=== PATIENT | male | born 1935 | race Caucasian/White ===

== ENCOUNTER → 2020-03-25 13:43 | Outpatient (BNVA) | payer MEDICARE, BC, SELFPAY | PROVIDERS: PCP Internal Medicine; Referring Provider Internal Medicine; Visit Provider Urology | DX: Z76.89 Persons encountering health services in other specified circumstances (principal) | CPT/HCPCS: 99212 ==

== ENCOUNTER 2020-04-07 06:16 | Day surgery (SDC) | payer MEDICARE, SELFPAY ==
[2020-04-02 20:54] VITALS: BMI 19.2
--- NOTE | 2020-04-04 13:40 | HO.ANESPROP2 ---
Documented by User: Jennifer Khan 04/04/20 13:43 HPI - Anesthesia Eval Consult details Narrative: 84yo for Cysto, Stent Removal (Right) s/p cysto, stent exchange 11/2019 with [facility] Past Medical History Medical History Back pain Diabetes GERD (gastroesophageal reflux disease) History of Crohn's disease History of kidney stones History of pneumonia Hyperlipemia Hypertension Surgical History Surgical History H/O eye surgery History of colonoscopy Hx of cystoscopy Hx of tonsillectomy History of Problems with Anesthesia: No Social History Social History Smoking Status: Former smoker Smoking Quit Date: 1989 Second Hand Smoke Exposure: No Use of substances other than those prescribed or required for medical reasons: No Advance Directives: Yes Advance Directives Information Provided: Yes Advance Directives on File: Yes (unknown) Advance Directives Date on File: 06/29/19 Meds Allergies Allergy/AdvReac Type Severity Reaction Status Date / Time No Known Allergies Allergy Verified 03/25/20 13:58 [No Known Allergies*] Home Medications Medication Instructions Recorded Confirmed Type albuterol sulfate 90 mcg/actuation 2 puff INHALATION Q3-4H PRN 03/25/20 04/02/20 History aerosol inhaler atorvastatin 10 mg tablet 10 mg PO DAILY 03/25/20 04/02/20 History famotidine 20 mg tablet mg PO 03/25/20 03/25/20 History flu vacc 2020-21(65yr ml IM 03/25/20 03/25/20 History up)-MF59C(PF) 60 mcg(15 mcgx4)/0.5 mL IM syringe hydralazine 50 mg tablet 25 mg PO BID 03/25/20 04/02/20 History lisinopril 40 mg tablet 30 mg PO DAILY 03/25/20 04/02/20 History mesalamine 500 mg 1,500 mg PO BID 03/25/20 04/02/20 History capsule,controlled release omeprazole 20 mg capsule,delayed 20 mg PO DAILY 03/25/20 04/02/20 History release ondansetron HCl 4 mg tablet mg PO 03/25/20 03/25/20 History dorzolamide-timolol [Cosopt] 1 drp OPHTHALMIC (EYE) BID 04/02/20 04/02/20 History latanoprost [Xalatan] 1 drp OPHTHALMIC (EYE) QPM 04/02/20 04/02/20 History Exam Exam Date and Time: April 04, 2020 1340 Height,Weight and Vital Signs: Height 6 ft 2 in Weight 68.039 kg Assessment and Plan Assessment Anesthesia Assessment: Chart Reviewed Documented by User: Yvette Simpson 04/07/20 08:04 PMF Past Medical History Medical History Back pain Diabetes GERD (gastroesophageal reflux disease) History of Crohn's disease History of kidney stones History of pneumonia Hyperlipemia Hypertension Surgical History Surgical History H/O eye surgery History of colonoscopy Hx of cystoscopy Hx of tonsillectomy Social History Social History Smoking Status: Former smoker Smoking Quit Date: 1989 Second Hand Smoke Exposure: No Use of substances other than those prescribed or required for medical reasons: No Advance Directives: Yes Advance Directives Information Provided: Yes Advance Directives on File: Yes (unknown) Advance Directives Date on File: 06/29/19 Meds Allergies Allergy/AdvReac Type Severity Reaction Status Date / Time No Known Allergies Allergy Verified 03/25/20 13:58 [No Known Allergies*] Home Medications Medication Instructions Recorded Confirmed Type albuterol sulfate 90 mcg/actuation 2 puff INHALATION Q3-4H PRN 03/25/20 04/02/20 History aerosol inhaler atorvastatin 10 mg tablet 10 mg PO DAILY 03/25/20 04/02/20 History famotidine 20 mg tablet mg PO 03/25/20 03/25/20 History flu vacc 2020-21(65yr ml IM 03/25/20 03/25/20 History up)-MF59C(PF) 60 mcg(15 mcgx4)/0.5 mL IM syringe hydralazine 50 mg tablet 25 mg PO BID 03/25/20 04/02/20 History lisinopril 40 mg tablet 30 mg PO DAILY 03/25/20 04/02/20 History mesalamine 500 mg 1,500 mg PO BID 03/25/20 04/02/20 History capsule,controlled release omeprazole 20 mg capsule,delayed 20 mg PO DAILY 03/25/20 04/02/20 History release ondansetron HCl 4 mg tablet mg PO 03/25/20 03/25/20 History dorzolamide-timolol [Cosopt] 1 drp OPHTHALMIC (EYE) BID 04/02/20 04/02/20 History latanoprost [Xalatan] 1 drp OPHTHALMIC (EYE) QPM 04/02/20 04/02/20 History Exam Airway Mallampati Class: II TM Dist: >3cm Neck ROM: Limited Assessment and Plan Assessment Anesthesia Assessment: Anesthesia Plan Discussed and Chart Reviewed Final Anesthetic Review NPO: Yes ASA Class: II Final Preanesthetic Review: No Changes in Pt Med Stat, Meds/Allgs Chart Reviewed, Consent Obtained/Reviewed and Anes Risks/Benef Reviewed Patient Risk: Low Procedure Risk: Low Assessment/Block/Sedation in SS: Assess/Block/Sedation-SS Anesthetic Plan Anesthetic Plan: MAC: Disposition: Standard PACU
[2020-04-07 06:46] VITALS: BP 163/71; PULSE 69; RESP 16; TEMP 36.3; O2SAT 99; BMI 19.3
[2020-04-07 07:16] LABS: Glucose, Whole Blood 126 mg/dL (60-115)
[2020-04-07] MEDS: levoFLOXacin 500 MG TABLET PO (07:26)
[2020-04-07] MEDS: Lactated Ringers 1,000 ML 100 ML IVCONT (07:28)
--- NOTE | 2020-04-07 07:58 | FL_ITS ---
EXAMINATION: XR FLUOROSCOPY CLINICAL INFORMATION: Ureteral stent exchange COMPARISON: Previous exams most recent March 2019 TECHNIQUE: Fluoroscopic guidance was provided for right internal ureteral stent exchange. FINDINGS: There is a right internal ureteral stent in satisfactory position. FLUOROSCOPY TIME: 15 seconds Total dose 2.6 mgy. 2 saved fluoroscopic images. IMPRESSION: Fluoroscopic guidance for right internal ureteral stent exchange.
--- NOTE | 2020-04-07 08:07 | MHC.SHP ---
Pre-Procedural Eval Section B Chief Complaint: right ureter stone Details of Present Illness: Right stent exchange Relevant Family History (Specify if Yes): No Relevant Social History: None Present Medications: see Short Stay Collaborative assessment Medical History: Significant History (prior stent exchanges) History of Previous Operations: Relevant previous surgery/procedure and date(s) Allergies: Allergies Allergy/AdvReac Type Severity Reaction Status Date / Time No Known Allergies Allergy Verified 03/25/20 13:58 [No Known Allergies*] Review of Systems Sugical H&P ROS: Negative: Constitution, Cardiovascular, Respiratory, Neurological, Psychiatric, Hem-Onc, Allergic/Immunologic, Gastrointestinal, Genitourinary, Musculoskeletal, Integumentary, Endocrine and Eyes/Ears/Nose/Throat Exam Surgical H&P Exam: Normal: HEENT, Normal: Heart, Normal: Lungs, Normal: Extremities, Normal: Abdomen, Normal: Skin and Normal: Neurological Plan Diagnosis/Plan: Unchanged Patient has been examined and remains a candidate for the planned procedure
--- NOTE | 2020-04-07 08:20 | P.CONAN_ITS ---
[facility] Past Medical History Medical History Back pain Diabetes GERD (gastroesophageal reflux disease) History of Crohn's disease History of kidney stones History of pneumonia Hyperlipemia Hypertension Surgical History Surgical History H/O eye surgery History of colonoscopy Hx of cystoscopy Hx of tonsillectomy Social History Social History Smoking Status: Former smoker Smoking Quit Date: 1989 Second Hand Smoke Exposure: No Use of substances other than those prescribed or required for medical reasons: No Advance Directives: Yes Advance Directives Information Provided: Yes Advance Directives on File: Yes (unknown) Advance Directives Date on File: 06/29/19 Meds Allergies Allergy/AdvReac Type Severity Reaction Status Date / Time No Known Allergies Allergy Verified 03/25/20 13:58 [No Known Allergies*] Home Medications Medication Instructions Recorded Confirmed Type albuterol sulfate 90 mcg/actuation 2 puff INHALATION Q3-4H PRN 03/25/20 04/02/20 History aerosol inhaler atorvastatin 10 mg tablet 10 mg PO DAILY 03/25/20 04/02/20 History famotidine 20 mg tablet mg PO 03/25/20 03/25/20 History flu vacc 2020-21(65yr ml IM 03/25/20 03/25/20 History up)-MF59C(PF) 60 mcg(15 mcgx4)/0.5 mL IM syringe hydralazine 50 mg tablet 25 mg PO BID 03/25/20 04/02/20 History lisinopril 40 mg tablet 30 mg PO DAILY 03/25/20 04/02/20 History mesalamine 500 mg 1,500 mg PO BID 03/25/20 04/02/20 History capsule,controlled release omeprazole 20 mg capsule,delayed 20 mg PO DAILY 03/25/20 04/02/20 History release ondansetron HCl 4 mg tablet mg PO 03/25/20 03/25/20 History dorzolamide-timolol [Cosopt] 1 drp OPHTHALMIC (EYE) BID 04/02/20 04/02/20 History latanoprost [Xalatan] 1 drp OPHTHALMIC (EYE) QPM 04/02/20 04/02/20 History Exam Exam Date and Time: April 07, 2020 0820 Height,Weight and Vital Signs: Height 6 ft 2 in Weight 68.18 kg Last Vital Signs Temp 97.3 F 04/07/20 06:46 Pulse 69 04/07/20 06:46 Resp 16 04/07/20 06:46 BP 163/71 H 04/07/20 06:46 Pulse Ox 99 04/07/20 06:46 Pertinent Lab Results Pertinent Lab Results: Laboratory Tests 04/07/20 07:12 POC Glucose 126 H Airway Mallampati Class: II TM Dist: >3cm Neck ROM: Full Assessment and Plan Assessment Anesthesia Assessment: Anesthesia Plan Discussed and Chart Reviewed Final Anesthetic Review NPO: Yes ASA Class: II Final Preanesthetic Review: No Changes in Pt Med Stat, Meds/Allgs Chart Review ed, Consent Obtained/Reviewed and Anes Risks/Benef Reviewed Patient Risk: Low Procedure Risk: Low Assessment/Block/Sedation in SS: Assess/Block/Sedation-SS Anesthetic Plan Anesthetic Plan: GA Disposition: Standard PACU
--- NOTE | 2020-04-07 08:31 | PM.OP ---
Brief Operative Note Date of procedure: 04/07/20 Pre-op diagnosis: Right UPJ obstruction Procedure: cysto/stent exchange right side Implants: right stent Surgeon: Andreas Vasquez MD Anesthesia: GLMA Estimated blood loss (mL): 0 Pathology: none sent Condition: stable Disposition: same day
[2020-04-07 08:38] VITALS: BP 131/49; PULSE 69; RESP 16; TEMP 36.4; O2SAT 97
--- NOTE | 2020-04-07 08:42 | W.PM.OPN ---
Operative Note Operative Note Narrative: Preoperative diagnosis right UPJ obstruction with stent in place Postoperative diagnosis same Procedure: Cystoscopy, right stent removal, right retrograde, right stent placement Surgeon Dr. Andreas Vasquez anesthesia sedation Indications for procedure This is a pleasant 84-year-old male. Has a right UPJ narrowing. Is managed with indwelling stent and periodic changes. Recently started to have symptoms. He is at the 4 month rio. Procedure After informed consent was verified patient brought to the operating room and placed in a supine position. Anesthesia was performed per protocol. Patient was prepped and draped in a sterile fashion. A safety pause time-out was observed. Antibiotics had been given. Twenty-one [place] Islander cystoscope was inserted per urethra. Both ureteric orifices seen in normal position. Stent coil seen in bladder from right ureter office. A Sensor guidewire was placed alongside the stent up to the level of the renal pelvis with fluoroscopy The indwelling ureteric stent was grasped and removed. Retrograde examination was performed showing no filling defects A 6 [place] Islander by 26 cm stent was placed over the wire up to the renal pelvis and confirmed with fluoroscopy. A good coil was seen within the bladder. He tolerated the procedure well was extubated in the operating room and transferred in a stable condition to the recovery area. Blood loss minimal Drains. Six [place] Islander by 26 cm stent placed on the right side
[2020-04-07 08:43] VITALS: BP 126/50; PULSE 67; RESP 15; O2SAT 97
[2020-04-07] MEDS: Phenazopyridine HCL 100 MG TABLET PO (08:51)
[2020-04-07 08:58] VITALS: BP 134/57; PULSE 61; RESP 17; O2SAT 99
--- NOTE | 2020-04-07 09:33 | HO.POSTANES ---
Post Anesthesia Evaluation Post Anesthesia Evaluation Vital Signs: Vital Signs Temp Pulse Resp BP Pulse Ox 04/07/20 08:58 61 17 134/57 L 99 04/07/20 08:43 67 15 126/50 L 97 04/07/20 08:38 97.5 F 69 16 131/49 L 97 04/07/20 06:46 97.3 F 69 16 163/71 H 99 Anesthesia: General (TIVA) Mental Status: Awake Pain Control: Satisfactory Nausea/Vomiting: None Hydration: Adequate Anesthesia-Related Issues: No Anes. Related Issues
== END 2020-04-07 10:10 | disposition home or self-care (01) ==
PROVIDERS: PCP Internal Medicine; Visit Provider Urology
PROC: (CPT 52332; principal; 2020-04-07 07:50)
DX: N13.5 Crossing vessel and stricture of ureter without hydronephrosis (principal); K21.9 Gastro-esophageal reflux disease without esophagitis; E11.9 Type 2 diabetes mellitus without complications; I10 Essential (primary) hypertension; E78.5 Hyperlipidemia, unspecified; Z79.899 Other long term (current) drug therapy; Z87.891 Personal history of nicotine dependence
CPT/HCPCS: 52332; 82947; C1758; C1769; C2617; J3010; Q9967

== ENCOUNTER → 2020-08-06 13:18 | Outpatient (BNVA) | payer MEDICARE, BC, SELFPAY | PROVIDERS: PCP Internal Medicine; Visit Provider Urology | DX: N13.30 Unspecified hydronephrosis (principal) | CPT/HCPCS: 81002; 99212 ==

== ENCOUNTER 2020-09-15 07:39 | Day surgery (SDC) | payer MEDICARE, BC, SELFPAY ==
[2020-09-08 11:44] VITALS: BMI 20.4
--- NOTE | 2020-09-10 14:23 | P.CONAN_ITS ---
Documented by User: Jennifer Dixonney 09/10/20 15:00 HPI - Anesthesia Eval Consult details Narrative: 85yo M for Right Cystoscopy & Stent Replacement s/p cysto, stent with TIVA 03/2020 Eliquis for apixaban Telehealth 09/10/20 - Pt denies CP/SOB with a short walk daily. States feeling better after hospitalization at [facility] 06/2020 with afib/CHF. Pt sounded SOB when talking, states he was rushing to get to the phone. [facility] Active Problems Active Problems: All Active Problems (Updated 09/08/20 @ 11:35 by Emilia Easton) Hydronephrosis (Acute) Urinary tract infection (Acute) Past Medical History Medical History Arrhythmia Back pain CAD (coronary artery disease) CHF (congestive heart failure) Chronic renal insufficiency COVID-19 vaccine administered Diabetes Former smoker GERD (gastroesophageal reflux disease) History of Crohn's disease History of kidney stones History of pneumonia Hx of irritable bowel syndrome Hyperlipemia Hypertension On anticoagulant therapy Family History Family history of problems with anesthesia: No Surgical History Surgical History H/O eye surgery History of colonoscopy Hx of cardiac catheterization Hx of cataract surgery Hx of cholecystectomy Hx of cystoscopy Hx of tonsillectomy History of Problems with Anesthesia: No Social History Social History (Updated 09/08/20 @ 11:37 by Emilia Easton) Are you a primary caregiver services home to a significant other at home: No Do you presently have visiting nurse or other home services: No Smoking Status: Former smoker Tobacco Type: Cigarette Smoking Quit Date: 1981 Second Hand Smoke Exposure: No Use of substances other than those prescribed or required for medical reasons: No Have you been hit, kicked, punched, or otherwise hurt by someone within the past year? If so, by whom?: No Advance Directives: Yes Advance Directives Information Provided: Yes Advance Directives on File: Yes Advance Directives Date on File: 06/29/19 Recently lost weight without trying: No Meds Allergies Allergy/AdvReac Type Severity Reaction Status Date / Time No Known Allergies Allergy Verified 09/15/20 07:52 [No Known Allergies*] Home Medications Medication Instructions Recorded Confirmed Last Taken Type albuterol sulfate 90 mcg/actuation 2 puff INHALATION Q3-4H PRN 03/25/20 09/08/20 Unknown History aerosol inhaler famotidine 20 mg tablet mg PO 03/25/20 03/25/20 Unknown History flu vacc 2020-21(65yr ml IM 03/25/20 03/25/20 Unknown History up)-MF59C(PF) 60 mcg(15 mcgx4)/0.5 mL IM syringe hydralazine 50 mg tablet 25 mg PO BID 03/25/20 09/08/20 Unknown History mesalamine 500 mg 1,500 mg PO BID 03/25/20 09/08/20 Unknown History capsule,controlled release omeprazole 20 mg capsule,delayed 20 mg PO DAILY 03/25/20 09/08/20 09/15/20 06:00 History release dorzolamide-timolol [Cosopt] 1 drp OPHTHALMIC (EYE) BID 04/02/20 09/08/20 Unknown History latanoprost [Xalatan] 1 drp OPHTHALMIC (EYE) QPM 04/02/20 09/08/20 Unknown History amiodarone 200 mg tablet 200 mg PO DAILY 08/06/20 09/08/20 09/15/20 06:00 History apixaban 2.5 mg tablet 2.5 mg PO BID 08/06/20 09/08/20 09/12/20 History atorvastatin 40 mg tablet 40 mg PO BEDTIME 08/06/20 09/08/20 Unknown History blood sugar diagnostic #10 ea 08/06/20 Unknown History isosorbide mononitrate 30 mg 30 mg PO DAILY 08/06/20 09/08/20 09/15/20 06:00 History tablet,extended release 24 hr metoprolol succinate 25 mg 25 mg PO DAILY 08/06/20 09/08/20 09/15/20 06:00 History tablet,extended release 24 hr ondansetron 4 mg disintegrating 4 mg PO Q8H PRN 08/06/20 09/08/20 Unknown History tablet aspirin [Aspirin Low Dose] 81 mg PO DAILY 09/08/20 09/08/20 09/12/20 History cyanocobalamin (vitamin B-12) 500 mcg PO DAILY 09/08/20 09/08/20 Unknown History [Vitamin B-12] lisinopril 10 mg PO DAILY 09/08/20 09/08/20 Unknown History Exam Exam Date and Time: September 10, 2020 1423 Height,Weight and Vital Signs: Height 6 ft 1 in Weight 70.307 kg Narrative Narrative: EKG 04/2020 Afib with RVR @ 106 Volt criteria for LVH Nonspecific ST and T wave abn Echo 04/2020 LV size is normal LV wall thichness is normal. LV sys function is moderately reduced. LVEF 30-35%. Moderate global hypokinesis of left ventricle. RV is normal in size and function. There is a L sided pleural effusion No significant pericardial effusion Cardiac cath 04/2020 significant diagonal branch disease with moderate lesion - med management unless increased angina (exercising without limits per cardiology post-discharge f/u) Assessment and Plan Assessment Anesthesia Assessment: Chart Reviewed Documented by User: Sushil Kemp MD 09/15/20 08:14 HPI - Anesthesia Eval Consult details Narrative: NYHA III heart failure, appears to be currently optimized to his baseline, however he has ongoing edema and SOB at baseline PMFSH Past Medical History Medical History Arrhythmia Back pain CAD (coronary artery disease) CHF (congestive heart failure) Chronic renal insufficiency COVID-19 vaccine administered Diabetes Former smoker GERD (gastroesophageal reflux disease) History of Crohn's disease History of kidney stones History of pneumonia Hx of irritable bowel syndrome Hyperlipemia Hypertension On anticoagulant therapy Surgical History Surgical History H/O eye surgery History of colonoscopy Hx of cardiac catheterization Hx of cataract surgery Hx of cholecystectomy Hx of cystoscopy Hx of tonsillectomy Social History Social History (Updated 09/08/20 @ 11:37 by Emilia Easton) Are you a primary caregiver services home to a significant other at home: No Do you presently have visiting nurse or other home services: No Smoking Status: Former smoker Tobacco Type: Cigarette Smoking Quit Date: 1981 Second Hand Smoke Exposure: No Use of substances other than those prescribed or required for medical reasons: No Have you been hit, kicked, punched, or otherwise hurt by someone within the past year? If so, by whom?: No Advance Directives: Yes Advance Directives Information Provided: Yes Advance Directives on File: Yes Advance Directives Date on File: 06/29/19 Recently lost weight without trying: No Meds Allergies Allergy/AdvReac Type Severity Reaction Status Date / Time No Known Allergies Allergy Verified 09/15/20 07:52 [No Known Allergies*] Home Medications Medication Instructions Recorded Confirmed Last Taken Type albuterol sulfate 90 mcg/actuation 2 puff INHALATION Q3-4H PRN 03/25/20 09/08/20 Unknown History aerosol inhaler famotidine 20 mg tablet mg PO 03/25/20 03/25/20 Unknown History flu vacc 2020-(65yr ml IM 03/25/20 03/25/20 Unknown History up)-MF59C(PF) 60 mcg(15 mcgx4)/0.5 mL IM syringe hydralazine 50 mg tablet 25 mg PO BID 03/25/20 09/08/20 Unknown History mesalamine 500 mg 1,500 mg PO BID 03/25/20 09/08/20 Unknown History capsule,controlled release omeprazole 20 mg capsule,delayed 20 mg PO DAILY 03/25/20 09/08/20 09/15/20 06:00 History release dorzolamide-timolol [Cosopt] 1 drp OPHTHALMIC (EYE) BID 04/02/20 09/08/20 Unknown History latanoprost [Xalatan] 1 drp OPHTHALMIC (EYE) QPM 04/02/20 09/08/20 Unknown History amiodarone 200 mg tablet 200 mg PO DAILY 08/06/20 09/08/20 09/15/20 06:00 History apixaban 2.5 mg tablet 2.5 mg PO BID 08/06/20 09/08/20 09/12/20 History atorvastatin 40 mg tablet 40 mg PO BEDTIME 08/06/20 09/08/20 Unknown History blood sugar diagnostic #10 ea 08/06/20 Unknown History isosorbide mononitrate 30 mg 30 mg PO DAILY 08/06/20 09/08/20 09/15/20 06:00 History tablet,extended release 24 hr metoprolol succinate 25 mg 25 mg PO DAILY 08/06/20 09/08/20 09/15/20 06:00 History tablet,extended release 24 hr ondansetron 4 mg disintegrating 4 mg PO Q8H PRN 08/06/20 09/08/20 Unknown History tablet aspirin [Aspirin Low Dose] 81 mg PO DAILY 09/08/20 09/08/20 09/12/20 History cyanocobalamin (vitamin B-12) 500 mcg PO DAILY 09/08/20 09/08/20 Unknown History [Vitamin B-12] lisinopril 10 mg PO DAILY 09/08/20 09/08/20 Unknown History Exam Airway Mallampati Class: II TM Dist: >3cm Neck ROM: Full Loose/Missing/Broken Teeth: No Lungs: Clear Other: Bilateral LE edema Assessment and Plan Assessment Anesthesia Assessment: Anesthesia Plan Discussed and Chart Reviewed Final Anesthetic Review NPO: Yes ASA Class: IV Final Preanesthetic Review: No Changes in Pt Med Stat, Meds/Allgs Chart Reviewed, Consent Obtained/Reviewed and Anes Risks/Benef Reviewed (Risk of CHF exacerbation, potential admission to medical floor post op given ongoing LE edema, will monitor post op) Patient Risk: High Procedure Risk: Low Anesthetic Plan Anesthetic Plan: GA and Agree w/ Assess. and Plan Disposition: Standard PACU
[2020-09-15 08:13] VITALS: BP 139/53; PULSE 62; RESP 18; TEMP 36.3; O2SAT 97
[2020-09-15 08:20] LABS: Hematocrit 27.8 % (42-52); Hemoglobin 8.2 g/dl (14.0-18.0); Mean Corpuscular HGB Conc 29.5 g/dl (31.0-36.0); Mean Corpuscular Hemoglobin 24.8 pg (27.0-33.0); Mean Platelet Volume 10.2 fL (9.4-12.4); Platelet Count 415 X10*3/uL (160-400); Red Blood Count 3.31 X10*6/uL (4.60-5.80); Red Cell Distribution Width 17.2 % (11.0-16.0); White Blood Count 8.2 X10*3/uL (4.8-10.8)
--- NOTE | 2020-09-15 08:22 | MHC.SHP ---
Pre-Procedural Eval Section A The patient is an INPATIENT: No Changes since office visit: No Cold of Flu in the past 2 weeks, No New Medical Problems, No Changes in Medication and No Patient answered all questions The History & Physical has been completed within 30 days and I have reviewed it.: Yes Section B Chief Complaint: Hydronephrosis Allergies: Allergies Allergy/AdvReac Type Severity Reaction Status Date / Time No Known Allergies Allergy Verified 09/15/20 07:52 [No Known Allergies*] Plan Diagnosis/Plan: Unchanged (right stent exchange) I have reviewed the history and physical and performed a pertinent physical examination on my patient. No changes have occurred unless specified.
[2020-09-15] MEDS: levoFLOXacin 500 MG TABLET PO (08:27)
[2020-09-15] MEDS: Lactated Ringers 1,000 ML 20 ML IVCONT (08:28)
[2020-09-15 08:41] LABS: Anion Gap 16 (12-20); Blood Urea Nitrogen 45 mg/dL (9-16); Calcium 8.1 mg/dL (8.4-10.2); Carbon Dioxide 17 mmol/L (22-29); Chloride 118 mmol/L (96-108); Creatinine Clr Calc Pharmacy 17.5; Estimated Glomerular Filt Rate 19; Glucose Fasting 136 mg/dL (60-99); Potassium 3.6 mmol/L (3.3-5.1); Sodium 147 mmol/L (135-145)
[2020-09-15 08:45] LABS: B Type Natriuretic Peptide 1936 pg/mL (<100)
--- NOTE | 2020-09-15 09:28 | MHC.SHP ---
Pre-Procedural Eval Section A The patient is an INPATIENT: No Changes since office visit: No Cold of Flu in the past 2 weeks, No New Medical Problems, No Changes in Medication and No Patient answered all questions The History & Physical has been completed within 30 days and I have reviewed it.: Yes Section B Chief Complaint: Hydronephrosis Allergies: Allergies Allergy/AdvReac Type Severity Reaction Status Date / Time No Known Allergies Allergy Verified 09/15/20 07:52 [No Known Allergies*] Plan Diagnosis/Plan: Unchanged ( right cysto stent exchange) I have reviewed the history and physical and performed a pertinent physical examination on my patient. No changes have occurred unless specified.
--- NOTE | 2020-09-15 09:34 | PC.NURSE ---
texted yosi and collin about abnormal results. collin addressed and ok'd.
--- NOTE | 2020-09-15 10:01 | P.BOP_ITS ---
Brief Operative Note Date of Service: 09/15/20 Pre-op diagnosis: Right hydronephrosis Post-op diagnosis: same Procedure: right stent exchange Implants: 6 [place] by 26 cm double-J stent Surgeon: Andreas Vasquez MD Anesthesia: MAC Estimated blood loss (mL): 0 Pathology: none sent Condition: stable Disposition: same day
--- NOTE | 2020-09-15 10:02 | P.OP_ITS ---
Operative Note Operative Note Date of Service: 09/15/20 Narrative: PreOperative Diagnosis: right hydronephrosis Post Operative Diagnosis: right hydronephrosis Procedure: right stent exchange Surgeon: Dr Andreas Vasquez Anesthesia: sedation Indications for procedure: this is an 85-year-old male. Has known right hydronephrosis with question of UPJ dysfunction. Had been managed with right stent which is exchanged on a four month interval. Recently had slight rise in creatinine. Here today for right stent exchange. Procedure: After informed consent was verified the patient was brought to the operating room and placed in a supine position. Anesthesia was administered per protocol. the patient was placed in a modified dorsal lithotomy position and prepped and draped in sterile fashion. Safety pause time-out was observed. Antibiotics being given. A 22 [place]er cystoscope was inserted per urethra. The bladder was normal upon examination. The indwelling right stent was grasped brought out to the urethral meatus. Sensor guidewire was placed inside the stent and up to the renal pelvis. The indwelling stent was removed. The Sensor guidewire was backloaded into the 22 [place]er cystoscope. This was advanced and a fresh 6 [place] by 24 cm stent was placed up to the renal pelvis with good coil in the pelvis and in the bladder seen visually and on fluoroscopy. He tolerated the procedure well and was sent to the recovery area. Pathology: None Drains: 6 [place]er by 24 cm stent
[2020-09-15 10:10] VITALS: BP 109/42; PULSE 59; RESP 16; TEMP 36.8; O2SAT 100
[2020-09-15 10:23] VITALS: BP 112/43; PULSE 55; RESP 16; O2SAT 100
[2020-09-15 10:39] VITALS: BP 121/49; PULSE 52; RESP 16; O2SAT 100
[2020-09-15 10:46] VITALS: BP 132/54; PULSE 58; RESP 16; TEMP 36.6; O2SAT 100
== END 2020-09-15 11:15 | disposition home or self-care (01) ==
PROVIDERS: Nurse Practitioner; PCP Internal Medicine; Visit Provider Urology
PROC: (CPT 52310; principal; 2020-09-15 09:20)
DX: N13.30 Unspecified hydronephrosis (principal); Z87.442 Personal history of urinary calculi; E11.22 Type 2 diabetes mellitus with diabetic chronic kidney disease; I13.0 Hypertensive heart and chronic kidney disease with heart failure and stage 1 through stage 4 chronic kidney disease, or unspecified chronic kidney disease; N18.30 Chronic kidney disease, stage 3 unspecified; I50.9 Heart failure, unspecified; Z90.49 Acquired absence of other specified parts of digestive tract; Z79.01 Long term (current) use of anticoagulants; Z79.82 Long term (current) use of aspirin; Z79.899 Other long term (current) drug therapy; Z87.891 Personal history of nicotine dependence; Z87.01 Personal history of pneumonia (recurrent)
CPT/HCPCS: 52332; 36415; 80048; 83880; 85027; C1769; C2617; J3010